=== PATIENT | male | born 1990 | race Native Hawaiian/Other Pacific Islander ===

== ENCOUNTER 2018-02-03 10:26 | Emergency (ER) | payer SELFPAY ==
[2018-02-03 10:40] VITALS: BP 120/76
[2018-02-03] MEDS ORDERED: MOTRIN PO ONE (11:09)
[2018-02-03] MEDS ORDERED: ZOFRAN ODT PO ONE (11:19)
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
--- NOTE | 2018-02-03 11:52 | Cat Scan Report ---
CT HEAD WITHOUT CONTRAST: HISTORY: Headache. TECHNIQUE: Sequential 2.5mm CT images. COMPARISON: none. FINDINGS: Cerebral Parenchyma: Within normal limits. Cerebellum: Within normal limits. Brainstem: Within normal limits. Ventricles: Normal. Sella: Normal. Extra-axial spaces: Normal. Basal Cisterns: Normal. Intracranial Hemorrhage: None. Midline Shift: None. Calvarium: Normal. Sinuses: Normal. Mastoid Air Cells: Normal. Visualized Orbits: A calcified mass measuring 2.3 x 1.3 cm is identified in the superolateral left orbital cavity. This is in the vicinity of the left lacrimal gland. The etiology of this is unclear, consider consultation with ophthalmology. IMPRESSION: Normal CT of the brain parenchyma. Calcified mass in the superolateral left orbital cavity of uncertain significance. This has a chronic appearance. Osteoma?
== END 2018-02-03 12:04 | disposition home or self-care (01) ==
LOC: ED 10:26
DX: R51 Headache (principal); R11.0 Nausea
CPT/HCPCS: 70450; Q0162